=== PATIENT | female | born 2000 | race African-American/Black ===

== ENCOUNTER 2022-09-11 22:10 | Emergency (ER) | payer MEDICAID, OTHER ==
[2022-09-11] MEDS ORDERED: Ibuprofen 800 MG TAB ONE (22:48)
== END 2022-09-12 00:14 ==
LOC: EEVIPCON 22:10 → ERS 22:10
DX: S20.211A Contusion of right front wall of thorax, initial encounter (principal); V89.2XXA Person injured in unspecified motor-vehicle accident, traffic, initial encounter
CPT/HCPCS: 71045